=== PATIENT | female | born 1955 | race Caucasian/White ===

== ENCOUNTER → 2024-06-28 09:42 | Outpatient (CLI) | payer MEDICARE, BC, SELFPAY ==
--- NOTE | 2024-06-28 09:47 | DI.NM.S_ITS ---
PROCEDURE: NM NIYA PERF SPECT R&S PHARM Rest and pharmacological stress myocardial perfusion SPECT with gated imaging and ejection fraction RADIOPHARMACEUTICAL: 12.6 mCi Tc-99m tetrafosmin IV at rest and 25.3 mCi Tc-99m tetrafosmin IV at peak effect of pharmacological stress. [id number]-ugmpizwd was performed. INDICATIONS: RYAN TECHNIQUE: Radiopharmaceutical was injected at peak stress test, and also at rest. SPECT images were obtained. SPECT myocardial perfusion images were displayed in short axis, horizontal long axis, and vertical long axis views. Gated images were reviewed using Bebo software. COMPARISON: None. CARDIAC STRESS: A pharmacologic stress test was performed under the supervision of an attending staff, using an infusion of regadenoson 0.4 mg IV. Hemodynamic data: There is normal blood pressure and heart rate response to pharmacologic stress. Symptoms: The patient denied anginal chest pain. EKG: No diagnostic changes of ischemia; frequent PACs noted. FINDINGS: Raw data: There is good myocardial uptake of radiotracer. No significant motion artifacts. Dqqh-fs-rjssf ratio is 0.26 (normal is less than 0.38 for tetrafosmin tracer). Left ventricle function: Gated images demonstrate normal left ventricular wall thickening. No segmental wall motion abnormalities. No transient ischemic dilation; TID is 0.94 (normal less than 1.3). Left ventricle resting end diastolic volume is 98 mL. Left ventricle stress ejection fraction is >75%; normal range is above 45%. Myocardial perfusion: There is normal distribution of activity in the right and left ventricular myocardium. No fixed or reversible perfusion defects. IMPRESSION: Low risk study. No evidence of pharmacologic induced ischemia or scar. Normal LV size with hyperdynamic function. Dictated by: Mary Carmen Baum D.O. on 06/28/2024 at 16:26 Approved by: Mary Carmen Baum D.O. on 06/28/2024 at 16:28
== END ==
LOC: NUCM 09:45
DX: R06.09 Other forms of dyspnea (principal)
CPT/HCPCS: 78452; 93017; A9502; J2785

== ENCOUNTER → 2024-10-30 16:08 | Outpatient (CLI) | payer MEDICARE, BC, SELFPAY ==
--- NOTE | 2024-10-30 16:11 | DI.ECHO.S_ITS ---
[facility] : : [id number] : [place] : : [id number] : : Phone: [phone] Echocardiogram Report + + :Name: FERNANDO CALLAWAY Study Date: 10/30/2024 Height: 65 in : :Hospital ReadingLocation: Weight: 200 lb : : Gender: Female BSA: 2.0 m2 : :: 1955 Age: 69 yrs BP: 122/94 mmHg: :Reason For Study: SHORTNESS OF BREATH, HYPERTENSION : :Ordering Physician: KEYLA, : :JOVANNY Performed By: Chon Schuler : :Referring: JOVANNY RAMIRES : + + Interpretation Summary 1) Normal left ventricular thickness and size with low normal systolic function (EF 50-55%). 2) Normal right ventricular size and function. 3) There is mild to moderate aortic regurgitation. 4) No prior Echo available for comparison. Procedure: A two-dimensional transthoracic echocardiogram with color flow and Doppler was performed. The study quality was technically good. There is no prior echocardiogram noted for this patient. The patient was in normal sinus rhythm during the exam. Left Ventricle: The left ventricle is normal in size. There is normal left ventricular wall thickness. There is no ventricular septal defect visualized. The ejection fraction is estimated to be 50-55%. There are no obvious focal wall motion abnormalities noted but poor endocardial definition reduces the sensitivity for the detection of such. Diastolic parameters suggest a relaxation abnormality of the left ventricle, consistent with probable normal filling pressures. Right Ventricle: The right ventricle is normal in size and function. Atria: The left atrial size is normal. Right atrial size is normal. There is no Doppler evidence for an interatrial shunt. Mitral Valve: The mitral valve leaflets appear normal. There is no evidence of stenosis, fluttering, or prolapse. There is no mitral regurgitation noted. Aortic Valve: The aortic valve is trileaflet. The aortic valve opens well. There is no aortic valve stenosis. There is mild to moderate aortic regurgitation. Tricuspid Valve: The tricuspid valve leaflets are thin and pliable. There is trace tricuspid regurgitation. The right ventricular systolic pressure is estimated to be at least 26 mmHg based on an estimated right atrial pressure of 3 mm Hg. Pulmonic Valve: The pulmonic valve leaflets are thin and pliable; valve motion is normal. There is trace pulmonic regurgitation. Great Vessels: The aortic root is normal size. The ascending aorta could not be visualized. The pulmonary artery is normal size. The IVC is of normal diameter and collapses greater than 50% with a sniff. This suggests a low right atrial pressure of 3 mm Hg. Pericardium/ Pleura There is no pericardial effusion. There is no pleural effusion. MMode/2D Measurements & Calculations LVIDd: 4.1 cm LVOT diam: 1.9 cm LVIDs: 3.1 cm Ao root diam: 3.3 cm FS: 25.3 % EPSS: 0.74 cm IVSd: 1.0 cm LVPWd: 0.91 cm LV solorio. diameter/BSA (cm/m^2): 2.1 LV sys. diameter/BSA (cm/m^2): 1.6 LA A2 area: 20.7 cm2 RA long axis: 4.2 cm LA A4 area: 17.9 cm2 RA area: 13.2 cm2 LA length (vol): 5.0 cm RA vol: 35.1 ml LA vol: 63.7 ml RA : 17.8 ml/m2 LA vol index: 32.2 ml/m2 IVC diam: 1.1 cm RVD1 (basal): 3.6 cm RVD2 (mid): 2.9 cm TAPSE: 2.1 cm Doppler Measurements & Calculations Ao V2 max: 134.4 cm/sec LVOT Max Charles: 102.8 cm/sec Ao V2 mean: 98.1 cm/sec LV V1 max P.2 mmHg Ao max P.2 mmHg LV V1 VTI: 24.9 cm Ao mean P.2 mmHg KARLA(I,D): 2.2 cm2 Ao V2 VTI: 31.0 cm KARLA(V,D): 2.1 cm2 sev ratio: 0.80 KARLA indexed to BSA (cm^2/m^2): 1.1 AI P1/2t: 498.1 msec AI dec slope: 315.7 cm/sec2 MV E max charles: 77.4 cm/sec TR max charles: 237.5 cm/sec MV A max charles: 109.3 cm/sec TR max P.6 mmHg MV E/A: 0.71 PA V2 max: 87.6 cm/sec Med Peak E' Charles: 5.5 cm/sec PA V2 mean: 67.2 cm/sec E/E' med: 14.0 PA mean P.9 mmHg Lat Peak E' Charles: 7.5 cm/sec PA pr(Accel): 56.7 mmHg E/E' lat: 10.4 E/e' average: 12.2 MV dec time: 0.20 sec SV(LVOT): 69.1 ml Reading Physician:05:50 PM
== END ==
LOC: ECHO 16:09
PROVIDERS: PCP Student in an Organized Health Care Education/Training Program; Referring Provider Student in an Organized Health Care Education/Training Program; Visit Provider Student in an Organized Health Care Education/Training Program
DX: I35.1 Nonrheumatic aortic (valve) insufficiency (principal); J45.50 Severe persistent asthma, uncomplicated; I10 Essential (primary) hypertension; R06.02 Shortness of breath
CPT/HCPCS: 93306